=== PATIENT | male | born 1975 | race Caucasian/White ===

== ENCOUNTER → 2021-03-27 | Outpatient (CLI) | payer OTHER | LOC: MHCPAIN 10:11 | DX: M47.817 Spondylosis without myelopathy or radiculopathy, lumbosacral region (principal); M54.16 Radiculopathy, lumbar region; M53.3 Sacrococcygeal disorders, not elsewhere classified; M54.5 Low back pain | CPT/HCPCS: G0463 ==

== ENCOUNTER → 2021-05-09 | Outpatient (CLI) | payer OTHER | LOC: MHCPAIN 08:38 | DX: M47.817 Spondylosis without myelopathy or radiculopathy, lumbosacral region (principal); M54.16 Radiculopathy, lumbar region; M53.3 Sacrococcygeal disorders, not elsewhere classified | CPT/HCPCS: J0461; J1100; Q9967 ==

== ENCOUNTER → 2021-05-22 | Outpatient (CLI) | payer OTHER | LOC: MHCPAIN 12:27 | DX: M47.817 Spondylosis without myelopathy or radiculopathy, lumbosacral region (principal); M54.50 Low back pain, unspecified; M54.16 Radiculopathy, lumbar region; M53.3 Sacrococcygeal disorders, not elsewhere classified | CPT/HCPCS: G0463 ==